=== PATIENT | male | born 1955 | race Caucasian/White ===

== ENCOUNTER 2020-02-18 11:34 | Emergency (ER) | payer MEDICARE ==
[~2020-02-18] VITALS: Ht 177.8 cm; Wt 95.3 kg
[~2020-02-18 11:34] MED LIST: AMLODIPINE BESYL5 MG PO; ASPIRIN CHEWABL81 MG PO; BETIMOL5 M1 OP; DICLOFENAC SOD75 MG PO; FIBER TABLETS625 MG PO; FISH OIL500 M1 PO; LISINOPRIL20 MG PO; METOPROLOL SUCC25 M2 PO; METOPROLOL SUCC50 M2 PO; MULTI-DAY VITA1 EACH PO; PRAVACHOL40 MG PO; STOOL SOFTENER100 M3 PO; VITAMIN B1250 MCG PO; VITAMIN D400 I1 PO
== END 2020-02-18 14:59 | disposition home or self-care (01) ==
LOC: ED 11:34
DX: S01.81XA Laceration without foreign body of other part of head, initial encounter (principal); E78.5 Hyperlipidemia, unspecified; I10 Essential (primary) hypertension; Z79.899 Other long term (current) drug therapy; Z79.82 Long term (current) use of aspirin; W25.XXXA Contact with sharp glass, initial encounter; W19.XXXA Unspecified fall, initial encounter; Y93.89 Activity, other specified; Y92.89 Other specified places as the place of occurrence of the external cause; Y99.8 Other external cause status

== ENCOUNTER → 2020-09-08 | Outpatient (CLI) | payer MEDICARE ==
[2020-09-08 13:29] LABS: BUN 11 mg/dl (7-24); CHLORIDE 108 mmol/L (98-107); POTASSIUM 4.5 mmol/L (3.5-5.1); SODIUM 140 mmol/L (136-145)
== END | disposition home or self-care (01) ==
LOC: LAB 12:39
PROVIDERS: ATTEND Surgery Vascular Surgery
DX: I65.23 Occlusion and stenosis of bilateral carotid arteries (principal)